=== PATIENT | male | born 2000 | race Caucasian/White ===

== ENCOUNTER 2020-08-02 18:20 | Emergency (ER) | payer OTHER, SELFPAY ==
[2020-08-02 18:28] VITALS: BP 147/82; PULSE 78; RESP 18; TEMP 37.1; O2SAT 98; BMI 22.8
--- NOTE | 2020-08-02 18:42 | XRR_ITS ---
PROCEDURE INFORMATION: Exam: XR Left Foot Exam date and time: 08/02/2020 7:44 PM Age: 19 years old Clinical indication: Injury or trauma; Other: Tree fell on foot; Blunt trauma; Left; Additional info: Injury, cutting down tree, tree fell on foot TECHNIQUE: Imaging protocol: XR Left foot. Views: 3 or more views. COMPARISON: No relevant prior studies available. FINDINGS: Bones/joints: The foot is projected through a splint which obscures bony detail. On the lateral view appears to be a transverse fracture through the medial malleolus but difficult to fully assess due to the projections. A dedicated radiographic series of the ankle is advised. No obvious fractures are seen within the foot.. Soft tissues: Normal. XR/XR foot LT min 3V* [id number] IMPRESSION: There is limited visualization of what appears to be a transverse fracture through the medial malleolus. Dedicated radiographic series of the ankle is advised.
--- NOTE | 2020-08-02 19:58 | ED_ITS ---
HPI - Extremity Problem General: Chief complaint: Extremity Injury, Lower Stated complaint: LLE INJURY/PREV TREATED AT ANOTHER FACILITY Time Seen by Provider: 08/02/20 19:58 Source: patient Mode of arrival: ambulatory Limitations: no limitations History of Present Illness: HPI Narrative: Patient was brought in by his brother for concerns of fracture to the left ankle. Patient has a limited understanding due to foreign language. Patient's brother is present at bedside and does understand Bengali better but is still limited. Patient's first language is Jamaican. Review of Systems General: Reports: 10 or more systems reviewed and unremarkable except in HPI and below Musc: Reports: extremity pain Physical Exam Const: COMMON NORMALS: no acute distress and patient oriented x3 GENERAL APPEARANCE: cooperative HENMT: COMMON NORMALS: normocephalic and Normal external nose present HEAD & SCALP: normal to inspection and normocephalic NOSE: Normal external nose present Eye: GENERAL EYE: appearance normal, both eyes and all related structures Neck/C-Spine: COMMON NORMALS: full ROM Chest: COMMONS NORMALS: normal inspection of the chest Resp: COMMON NORMALS: normal respiratory effort EFFORT & INSPECTION: Yes able to speak in complete sentences Cardio: COMMON NORMALS: regular rate and regular rhythm RATE: regular rate RHYTHM: regular rhythm GI: COMMON NORMALS: non-tender Back/Pelvis: COMMON NORMALS: thoracic and lumbar spine normal to inspection Extremity: NARRATIVE EXTREMITY EXAM: Ankle was immobilized in a posterior short leg splint Neuro: COMMON NORMALS: patient oriented x3 and moves all extremities Psych: COMMON NORMALS: mental status grossly normal and cooperative Skin: COMMON NORMALS: no rashes or lesions noted GENERAL SKIN EXAM: no rashes or lesions noted Course Vital Signs: Vital signs: Vital Signs Temperature 98.7 F 08/02/20 18:28 Pulse Rate 78 08/02/20 18:28 Respiratory Rate 18 08/02/20 18:28 Blood Pressure 147/82 08/02/20 18:28 Pulse Oximetry 98 08/02/20 18:28 MDM - Extremity (Nontraumatic) MDM Narrative: Medical decision making narrative: Patient was brought in by his brother for concerns of injury to the left ankle. On examination patient is in a posterior short leg splint. Pulses and sensation is intact distally. Cap refill is intact. Differential diagnosis includes but not limited to language barrier, for ankle fracture, ankle sprain. X-ray notes a ankle fracture involving the tibial malleus. Patient was maintained in his short leg splint. Marita nurse, assisted in the helicopter crew chief role for answering questions in [facility] language. All answers were answered for patient. Patient reported understanding and agreed to plan. Discharge Plan Discharge Patient Disposition: Home Clinical Impression: Ankle fracture Qualifiers: Encounter type: subsequent encounter Fracture type: closed Laterality: left Fracture healing: with routine healing Qualified Code(s): S82.892D - Other fracture of left lower leg, subsequent encounter for closed fracture with routine healing Condition: Stable Discharge Orders: Discharge ED (Routine); Ordered 08/02/20 Ordered By: Zheng Ochoa Patient Instructions: Ankle Fracture (ED), Opioid Safety Activity Restrictions/Additional Instructions: Mantenga la f?shantell limpia y seca. Stephanie un seguimiento con el ortopedista para recibir m?s atenci?n. Eleve el pie para mayor comodidad e hinchaz?n. Use acetaminof?n o ibuprofeno para el dolor. Use clem compresa de hielo para un mayor alivio del dolor. Regrese al departamento de emergencias si tiene nuevas inquietudes. Keep splint clean and dry. Follow-up with orthopedist for further care. Elevate foot for comfort and swelling. Use acetaminophen or ibuprofen for pain. Use ice pack for further pain relief. Return to emergency department for new concerns. Coding Level of Care Code ED Millinery Blocker for Contreras Aparicio Exam Comprehensive
--- NOTE | 2020-08-07 09:30 | DCPLANNER ---
Alice combs called nurse case management asking about a referral to ortho for patient. real estate operations manager called the ortho clinic, spoke with Roxy, gave clinic patients information. real estate operations manager was told that patients information would be printed and reviewed. Clinic will call patient with appointment information.
--- NOTE | 2020-08-08 07:58 | DCPLANNER ---
Patient had a follow up appointment scheduled for 08.07.[address] Mustafa at [facility] - patient did attend appointment.
== END 2020-08-02 20:44 | disposition home or self-care (01) ==
PROVIDERS: Emergency Provider Nurse Practitioner Family
DX: S82.52XA Displaced fracture of medial malleolus of left tibia, initial encounter for closed fracture (principal); X58.XXXA Exposure to other specified factors, initial encounter
CPT/HCPCS: 73630; 99282

== ENCOUNTER → 2020-08-07 10:29 | Outpatient (BNVA) | payer OTHER, SELFPAY | PROVIDERS: Referring Provider Nurse Practitioner Family; Visit Provider Orthopaedic Surgery | DX: S82.52XD Displaced fracture of medial malleolus of left tibia, subsequent encounter for closed fracture with routine healing (principal); X58.XXXD Exposure to other specified factors, subsequent encounter | CPT/HCPCS: 73610 ==

== ENCOUNTER 2020-08-07 11:47 | Outpatient (CLI) | payer OTHER, SELFPAY | END 2020-08-07 11:48 | disposition home or self-care (01) | LOC: SPT 11:47 | PROVIDERS: Visit Provider Orthopaedic Surgery | DX: Z46.89 Encounter for fitting and adjustment of other specified devices (principal); S82.52XD Displaced fracture of medial malleolus of left tibia, subsequent encounter for closed fracture with routine healing; X58.XXXD Exposure to other specified factors, subsequent encounter | CPT/HCPCS: 87635; 97760; L4361 ==

== ENCOUNTER 2020-08-09 13:21 | Day surgery (SDC) | payer OTHER, SELFPAY ==
[2020-08-08 16:21] VITALS: BMI 25.7
[2020-08-09] VITALS (14 sets, daily range): BP systolic 112–188; BP diastolic 50–111; PULSE 56–105; RESP 12–22; TEMP 36.1–37.2; O2SAT 92–100
--- NOTE | 2020-08-09 | SCC_ITS ---
Procedure Done: Reduction internal fixation left medial malleolus 14.3 seconds of fluoroscopic guidance, for a cumulative dose of 0.28 mGy, was provided to Dr. Mustafa by the radiology department. C-arm images of the LEFT ankle were saved for the patient's permanent record. [facility] CENTERJohnnie
[2020-08-09] MEDS: sodium chloride 0.9% 1,000 ML 30 ML IV (13:45)
--- NOTE | 2020-08-09 14:23 | ANES.PREANE2 ---
Pre-Anesthetic Assessment Pre-Anesthetic Assessment: Height/Weight: Height 1.75 m Weight 78.925 kg Temp Pulse Resp BP Pulse Ox 97 F L 80 18 145/77 98 08/09/20 14:03 08/09/20 14:03 08/09/20 14:03 08/09/20 14:03 08/09/20 14:03 Preop Diagnosis: Fracture Left medial malleolus Proposed Procedure: Operation Date: 08/09/20 14:10 Proposed Procedures p ORIF Ankle medial malleolus fracture 55444 S82.52XA(Left) - Roland Mustafa MD Was Beta Genevieve taken within 24 hours: N/A Was Clonidine taken within 24 hours: N/A Last intake: Intake Last Liquid Date 08/08/20 Last Liquid Time 18:00 Last Solid Date 08/08/20 Last Solid Time 18:00 Social: Social History: No alcohol and No tobacco Exam: Pre-Anes Outpt Exam: alert, oriented x 3, clear to auscultation bilaterally and regular rate & rhythm Airway: Submandibular: WNL Cervical ROM: WNL MP: 2 History/ROS: No significant complaints Pulmonary: Pulmonary: None reported CV/HEM: CV/HEM: None reported : : None reported Hepatic: Hepatic: None reported GI: GI: None reported Metabolic: Metabolic: None reported Musc/skel: Musc/skel: None reported Neuropsych: Neuropsych: None reported Anesthetic Plan: ASA status: 1 Anesthesia: General Data Anesthesia Cardiac Studies: No Data to Display
--- NOTE | 2020-08-09 14:57 | W.PM.OPSUD ---
Surgery/Procedure H&P Update DATE OF PROCEDURE: August 09, 2020 DATE H&P PERFORMED: 08/09/20 PREOP DIAGNOSIS: Fracture Left medial malleolus PLANNED PROCEDURE: Operation Date: 08/09/20 14:10 Proposed Procedures p ORIF Ankle medial malleolus fracture 99372 S82.52XA(Left) - Roland Mustafa MD
--- NOTE | 2020-08-09 15:10 | PC.NURSE ---
A TANK WAGON OPERATOR WAS CALLED FOR EACH INTERACTION WITH PT AND HIS BROTHER; WHEN PT WAS LATE AND LOST ARRIVING FOR SURGERY AND I GUIDED HIM IN, ADMITTING PT, DISCUSSING AND SIGNING CONSENT WITH ANESTHESIA AND HIS SURGEON. ALL QUESTIONS WERE ASKED AND ANSWERED WITH ASSOCIATE VICE PRESIDENT WITH PT STATING UNDERSTANDING.
--- NOTE | 2020-08-09 16:12 | PM.OP ---
Operative Report Date of procedure: August 09, 2020 Pre-op Diagnosis: Fracture Left medial malleolus Post-op diagnosis: same Post-op Findings: Same Procedure Done: Reduction internal fixation left medial malleolus Implants: Victoriano ASNIS 4.0 canulated screws Pathology: none sent Surgeon: Roland Mustafa Anesthesia: General Estimated blood loss (mL): 10 Tourniquet time (min): 22 Complications: None Findings: Patient had a displaced oblique fracture of his left medial malleolus Condition: stable Disposition: PACU Procedure: The patient was taken to the operating room and given a general anesthesia. He was given 2 g of Ancef. Is prepped and draped the supine position with her ago on the left thigh. The tourniquet was inflated to 250 mmHg. A timeout was performed. A 3 cm long incision was made over the medial malleolus. Interposed soft tissue and hematoma were removed. A towel clamp was used to reduce the fracture. Two 4.0 mm cannulated screws, one with a washer or placed from the tip of the medial malleolus proximally and posteriorly. The posterior malleolar screw gain purchase on the posterior cortex. Wounds were irrigated with saline. Deep tissues were closed with 3-0 Vicryl. The skin was closed with interrupted 3-0 Prolene. Xeroflo gauze 4 x 4's web roll and a compressive Adelfo were applied. Patient was placed in a postop boot. He was extubated taken recovery room in stable condition.
--- NOTE | 2020-08-09 16:18 | XR_ITS ---
WS: [id number] Left ankle, C-arm fluoroscopy, 08/09/2020 Clinical Data: OR PICS Comparison: Left ankle, 08/07/2020. Findings: There is internal fixation with 2 orthopedic screws of the medial malleolar fracture. XR/XR ankle LT min 3V* 11032 Impression: Internal fixation of medial malleolar fracture of left ankle.
--- NOTE | 2020-08-09 16:21 | P.PCN_ITS ---
PACU note PACU note: VSS, Good respiratory effort, report to LUMBER PILER Post-Anesthesia Exam: awake
--- NOTE | 2020-08-09 16:21 | PM.PACU ---
PACU note PACU note: VSS, Good respiratory effort, report to MANUFACTURING WEAVER Post-Anesthesia Exam: awake
--- NOTE | 2020-08-09 16:21 | ANE.PACU2 ---
Inpatient post-anesthesia follow up: Airway intact: Yes Vital signs: Temperature 97 F Pulse Rate 80 Respiratory Rate 18 Blood Pressure 145/77 Pulse Oximetry 98 Oxygen Delivery Me thod Room Air Oxygen Flow Rate Fraction of Inspir ed Oxygen Hydration adequate: Yes Nausea and vomiting: No Pain level: 2 Mental status: Baseline
[2020-08-09] MEDS: fentaNYL 50 mcg/mL INJ 2mL IVP ×2 (16:30→16:35)
[2020-08-09] MEDS: morphine 4 mg/mL SDV 1 mL 2 MG IVP ×2 (16:40→16:42)
[2020-08-09] MEDS: HYDROmorphone 1 mg/mL INJ 1 mL 0.5 MG IVP ×2 (16:50→17:00)
--- NOTE | 2020-08-09 17:37 | PC.NURSE ---
EXPERIMENTAL DISPLAY BUILDER USED VIA PHONE FOR PAIN RATING, AND POST OP CARE EXPLAINED.
[2020-08-09] MEDS: HYDROcodone-acetaminophen 5-325 mg Tablet 1 TAB PO (18:00)
--- NOTE | 2020-08-09 18:19 | PC.NURSE ---
DISCHARGE INSTRUCTIONS GIVEN THROUGH APARTMENT MAINTENANCE.
== END 2020-08-09 18:30 | disposition home or self-care (01) ==
PROVIDERS: Visit Provider Orthopaedic Surgery
PROC: (CPT 27766; principal; 2020-08-09 14:00)
DX: S82.52XA Displaced fracture of medial malleolus of left tibia, initial encounter for closed fracture (principal); W23.0XXA Caught, crushed, jammed, or pinched between moving objects, initial encounter
CPT/HCPCS: 27766; 73610; 76000; C1713; J0690; J1170; J1580; J2250; J2270; J2405; J2704; J3010; J7030